=== PATIENT | female | born 1955 | race Caucasian/White ===

== ENCOUNTER 2021-04-25 03:15 | Outpatient (RCR) | payer BC, SELFPAY ==
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
[2021-04-04 08:43] LABS: Abs Immature Grans 0.03 10^3/uL (0.0-0.06); Absolute Basophil Count 0.04 10^3/uL (0.0-0.2); Absolute Eosinophil Count 0.05 10^3/uL (0.0-0.7); Absolute Lymphocyte Count 0.89 10^3/uL (1.2-3.4); Absolute Monocyte Count 0.21 10^3/uL (0.1-0.8); Absolute Neutrophil Count 2.87 10^3/uL (1.2-6.7); Eosinophils % 1.2; HCT 39.8 % (36.0-46.0); HGB 12.7 g/dL (11.2-15.7); Immature Grans % 0.7; Lymphocytes % 21.8; MCH 29.2 pg (27.0-33.0); MCHC 31.9 % (32.0-36.0); MCV 91.5 fL (80-95); MPV 10.1 fL (8.0-11.0); Monocytes % 5.1; Neutrophils % 70.2; Nucleated RBC 0 %; Platelet Count 204 10^3/uL (130-400); RBC 4.35 10^6/uL (3.93-5.22); RDW-SD 43.8 fL; WBC 4.09 10^3/uL (4.4-10.8)
[2021-04-04] MEDS: Normal Saline Flush 10 ML SYR IVP (08:43)
[2021-04-04 08:57] LABS: ALT 70 U/L (14-59); AST 28 U/L (15-37); Albumin 3.4 g/dL (3.4-5.0); Alkaline Phosphatase 97 U/L (46-116); Anion Gap 8.6 mmol/L (3-11); BUN 15 mg/dL (7-18); Bilirubin, Total 0.8 mg/dL (0.2-1.0); CO2 26.4 mmol/L (21.0-32.0); CREATININE 0.9 mg/dL (0.55-1.02); Calcium 9.3 mg/dL (8.5-10.1); Chloride 106 mmol/L (98-107); Glucose 91 mg/dL (74-106); Sodium 141 mmol/L (136-145); Total Protein 7.2 g/dL (6.4-8.2)
[2021-04-05 13:06] LABS: Cancer Ag 15-3 25 U/mL (<30)
[2021-04-11] MEDS: Normal Saline Flush 10 ML SYR IVP (08:11)
[2021-04-11 08:21] LABS: Abs Immature Grans 0.06 10^3/uL (0.0-0.06); Absolute Basophil Count 0.05 10^3/uL (0.0-0.2); Absolute Monocyte Count 0.34 10^3/uL (0.1-0.8); Basophils % 1.3; Eosinophils % 2.6; HCT 37.5 % (36.0-46.0); HGB 12.1 g/dL (11.2-15.7); Immature Grans % 1.6; Lymphocytes % 28.6; MCH 29.4 pg (27.0-33.0); MCHC 32.3 % (32.0-36.0); Monocytes % 8.8; Neutrophils % 57.1; Nucleated RBC 0 %; Platelet Count 249 10^3/uL (130-400); RBC 4.12 10^6/uL (3.93-5.22); RDW 13.4 % (11.7-14.6); RDW-SD 44.3 fL; WBC 3.85 10^3/uL (4.4-10.8)
[2021-04-11 08:33] LABS: ALT 59 U/L (14-59); AST 27 U/L (15-37); Albumin 3.4 g/dL (3.4-5.0); Alkaline Phosphatase 105 U/L (46-116); Anion Gap 9.3 mmol/L (3-11); BUN 19 mg/dL (7-18); Bilirubin, Total 0.3 mg/dL (0.2-1.0); CO2 25.7 mmol/L (21.0-32.0); CREATININE 0.8 mg/dL (0.55-1.02); Calcium 9.1 mg/dL (8.5-10.1); Chloride 106 mmol/L (98-107); Glucose 128 mg/dL (74-106); Potassium 3.6 mmol/L (3.5-5.1); Sodium 141 mmol/L (136-145); Total Protein 7.2 g/dL (6.4-8.2)
[2021-04-13 12:29] LABS: Cancer Ag 15-3 28 U/mL (<30)
[2021-04-18 07:38] LABS: Abs Immature Grans 0.01 10^3/uL (0.0-0.06); Absolute Basophil Count 0.04 10^3/uL (0.0-0.2); Absolute Eosinophil Count 0.03 10^3/uL (0.0-0.7); Absolute Lymphocyte Count 0.97 10^3/uL (1.2-3.4); Absolute Monocyte Count 0.25 10^3/uL (0.1-0.8); Basophils % 1.3; Eosinophils % 0.9; HCT 35.4 % (36.0-46.0); HGB 11.5 g/dL (11.2-15.7); Immature Grans % 0.3; Lymphocytes % 30.3; MCH 29.3 pg (27.0-33.0); MCHC 32.5 % (32.0-36.0); MCV 90.3 fL (80-95); MPV 10.4 fL (8.0-11.0); Monocytes % 7.8; Neutrophils % 59.4; Nucleated RBC 0 %; Platelet Count 255 10^3/uL (130-400); RBC 3.92 10^6/uL (3.93-5.22); RDW 13.3 % (11.7-14.6); RDW-SD 43.8 fL
[2021-04-18 07:51] LABS: ALT 60 U/L (14-59); AST 33 U/L (15-37); Albumin 3.3 g/dL (3.4-5.0); Alkaline Phosphatase 106 U/L (46-116); BUN 16 mg/dL (7-18); Bilirubin, Total 0.3 mg/dL (0.2-1.0); CREATININE 0.7 mg/dL (0.55-1.02); Calcium 9.3 mg/dL (8.5-10.1); Chloride 107 mmol/L (98-107); Glucose 118 mg/dL (74-106); Potassium 3.9 mmol/L (3.5-5.1); Sodium 141 mmol/L (136-145); Total Protein 6.9 g/dL (6.4-8.2)
[2021-04-18] MEDS: Normal Saline Flush 10 ML SYR IVP (08:03)
[2021-04-19 17:06] LABS: Cancer Ag 15-3 26 U/mL (<30)
[2021-04-25] MEDS: Normal Saline Flush 10 ML SYR IVP (07:42)
[2021-04-25 08:14] LABS: Abs Immature Grans 0.03 10^3/uL (0.0-0.06); Absolute Basophil Count 0.04 10^3/uL (0.0-0.2); Absolute Eosinophil Count 0.03 10^3/uL (0.0-0.7); Absolute Lymphocyte Count 0.99 10^3/uL (1.2-3.4); Absolute Monocyte Count 0.28 10^3/uL (0.1-0.8); Absolute Neutrophil Count 1.98 10^3/uL (1.2-6.7); Basophils % 1.2; Eosinophils % 0.9; HCT 35.3 % (36.0-46.0); HGB 11.4 g/dL (11.2-15.7); Immature Grans % 0.9; Lymphocytes % 29.6; MCH 29.5 pg (27.0-33.0); MCHC 32.3 % (32.0-36.0); MCV 91.5 fL (80-95); MPV 10.4 fL (8.0-11.0); Monocytes % 8.4; Nucleated RBC 0 %; Platelet Count 264 10^3/uL (130-400); RBC 3.86 10^6/uL (3.93-5.22); RDW 13.9 % (11.7-14.6); WBC 3.35 10^3/uL (4.4-10.8)
[2021-04-25 08:19] LABS: ALT 57 U/L (14-59); AST 28 U/L (15-37); Albumin 3.4 g/dL (3.4-5.0); Alkaline Phosphatase 107 U/L (46-116); Anion Gap 10.1 mmol/L (3-11); BUN 15 mg/dL (7-18); Bilirubin, Total 0.2 mg/dL (0.2-1.0); CO2 24.9 mmol/L (21.0-32.0); CREATININE 0.8 mg/dL (0.55-1.02); Calcium 9.3 mg/dL (8.5-10.1); Chloride 106 mmol/L (98-107); Glucose 93 mg/dL (74-106); Potassium 3.6 mmol/L (3.5-5.1); Sodium 141 mmol/L (136-145); Total Protein 6.9 g/dL (6.4-8.2)
[2021-04-26 18:38] LABS: Cancer Ag 15-3 28 U/mL (<30)
== END 2021-04-29 23:59 | disposition home or self-care (01) ==
LOC: INF 03:15
PROVIDERS: Visit Provider Internal Medicine
DX: C50.912 Malignant neoplasm of unspecified site of left female breast (principal); Z45.2 Encounter for adjustment and management of vascular access device
CPT/HCPCS: 36591; 80053; 86304; 85025; 86300

== ENCOUNTER 2021-05-02 08:20 | Outpatient (RCR) | payer BC, SELFPAY ==
[2021-05-02] MEDS: Normal Saline Flush 10 ML SYR IVP (08:38)
[2021-05-02 08:42] LABS: Abs Immature Grans 0.03 10^3/uL (0.0-0.06); Absolute Basophil Count 0.03 10^3/uL (0.0-0.2); Absolute Eosinophil Count 0.02 10^3/uL (0.0-0.7); Absolute Lymphocyte Count 0.88 10^3/uL (1.2-3.4); Absolute Monocyte Count 0.33 10^3/uL (0.1-0.8); Absolute Neutrophil Count 2.54 10^3/uL (1.2-6.7); Basophils % 0.8; Eosinophils % 0.5; HCT 34.2 % (36.0-46.0); HGB 11.3 g/dL (11.2-15.7); Immature Grans % 0.8; MCH 29.8 pg (27.0-33.0); MCV 90.2 fL (80-95); MPV 9.9 fL (8.0-11.0); Monocytes % 8.6; Neutrophils % 66.3; Nucleated RBC 0 %; Platelet Count 255 10^3/uL (130-400); RBC 3.79 10^6/uL (3.93-5.22); RDW 14.1 % (11.7-14.6); RDW-SD 45.1 fL; WBC 3.83 10^3/uL (4.4-10.8)
[2021-05-02 08:56] LABS: ALT 50 U/L (14-59); AST 26 U/L (15-37); Albumin 3.4 g/dL (3.4-5.0); Alkaline Phosphatase 97 U/L (46-116); Anion Gap 8.5 mmol/L (3-11); BUN 12 mg/dL (7-18); Bilirubin, Total 0.3 mg/dL (0.2-1.0); CO2 26.5 mmol/L (21.0-32.0); CREATININE 0.8 mg/dL (0.55-1.02); Calcium 9.3 mg/dL (8.5-10.1); Chloride 105 mmol/L (98-107); Glucose 103 mg/dL (74-106); Potassium 3.6 mmol/L (3.5-5.1); Sodium 140 mmol/L (136-145)
[2021-05-02 11:33] LABS: Magnesium 1.7 mg/dL (1.8-2.4)
[2021-05-03 17:49] LABS: Cancer Ag 15-3 29 U/mL (<30)
== END 2021-05-30 23:59 | disposition home or self-care (01) ==
LOC: INF 08:20
PROVIDERS: Visit Provider Internal Medicine
DX: C50.412 Malignant neoplasm of upper-outer quadrant of left female breast; Z17.1 Estrogen receptor negative status [ER-]; Z45.2 Encounter for adjustment and management of vascular access device
CPT/HCPCS: 36591; 80053; 86304; 83735; 85025; 86300

== ENCOUNTER 2021-05-24 01:13 | Outpatient (CLI) | payer BC, SELFPAY ==
--- NOTE | 2021-05-24 10:30 | DI.US_ITS ---
APPROVED REPORT EXAM: Comprehensive 2D, Doppler, and color-flow Echocardiogram Patient Location: Out-Patient Executive Producer Promos: Aura Zhang RDCS (AE) Indications: Malignant neoplasm left breast Other Information Study Quality: Adequate Conclusion Normal left ventricular wall thickness and chamber size. Estimated ejection fraction is 60%. There are no segmental wall motion abnormalities Normal right ventricular size and systolic function Both atria are normal in size The aortic valve is trileaflet and mildly sclerotic without stenosis or regurgitation There is no additional significant valvular disease Wall motion Left Ventricle The left ventricle is normal size. The left ventricular systolic function is normal. The left ventric ular ejection fraction is within the normal range. There is normal left ventricular wall thickness. T here is normal LV segmental wall motion. There is no ventricular septal defect visualized. LVEF is 60 %. Right Ventricle The right ventricle is normal size. The right ventricular systolic function is normal. The RVSP is 20 .7mmHg. Atria The left atrium size is normal. The right atrium size is normal. The interatrial septum is intact wit h no evidence for an atrial septal defect. Aortic Valve The Aortic valve is mildly sclerotic. Aortic valve is trileaflet. There is no aortic valvular stenosi s. No aortic regurgitation is present. Mitral Valve The mitral valve is normal in structure. No evidence of mitral valve stenosis. Trace mitral regurgita tion. Tricuspid Valve The tricuspid valve is normal in structure. There is no tricuspid valve stenosis. Trace to mild tricu spid regurgitation. Pulmonic Valve The pulmonary valve is normal in structure. There is no pulmonic valvular stenosis. There is no pulmo matt valvular regurgitation. Great Vessels The aortic root is normal in size. The ascending aorta is normal in size. Aortic arch is normal in ca liber. IVC is normal in size and collapses >50% with inspiration. Pericardium There is no pericardial effusion. 2D Dimensions IVSD d PLAX 0.76 cm F: 0.6-1.0 LV Vol A2C d MOD 116.7 mL LVPW d PLAX 0.78 cm F: 0.6 - 1.0 LV Vol A4C d MOD 92.2 mL LVID d PLAX 4.71 cm F: 3.8 - 5.2 LA vol/ BSA A2C s A-L 33.6 mL/m2 LVDs 3.20 cm F: 2.2 - 3.5 LA vol/ BSA A4C s A-L 24.5 mL/m2 Ao Root d 2.63 cm F: 2.7 - 3.3 LA Vol/ BSA Biplane s A-L 29.6 mL/m2 RA Area A4C 14.26 cm2 LA Area A4C s MOD 17.47 cm2 RA Vol/ BSA A4C s A-L 19.5 mL/m2 LA Area A2C s MOD 19.80 cm2 Ao Asc Diam d 2.95 cm F: 2.3 - 3.1 LV EF A4C MOD 59.3 % LV EF Teichholz 58.7 % LV EF A2C MOD 57.2 % LVEF (Murillo's) 57.73 % F: 54 - 74 LV EF Biplane MOD 57.7 % LV Volume 78.55 mL F: 46 - 106 SV 59.94 mL LV Volume Index 40.48 mL/m2 F: 29 - 61 SV Index 30.76 mL/m2 LV Vol Biplane MOD 103.8 mL FS 31.05 % M-Mode TAPSE 2.00 cm (M/F) >1.7 LV Diastology MV E' medial 0.081 (>0.07 m/s) E/A Ratio 1.0 LV E/e MED 7.35 (<14) MV E Vmax 0.59 (0.4-1.3 m/s) MV E' lateral 0.117 (>0.1 m/s) MV A Vmax 0.60 (0.4-1.3 m/s) LV E/e LAT 5.05 (<14) MV E/A Ratio 0.95 MV E/E' medial 7.35 MV E/E' lateral 5.06 Aortic Valve LVOT Area 3.02 cm2 AoV Area Vmax 2.29 cm2 LVOT Vmax 1.00 m/s AoV Area/ BSA (Vmax) 1.18 cm2/m2 LVOT Mean Joseph. 0.66 m/s ROZ Mean Joseph. 2.17 cm2 LVOT Peak Grad 4.0 mmHg ROZ Mean Joseph. Index 1.11 cm2/m2 LVOT Mean Grad 2.1 mmHg LVOT VTI 0.213 m LVOT Diam s 1.95 cm AoV Vmax 1.32 m/s Velocity Ratio 0.75 AoV Mean Joseph. 0.92 m/s AoV Peak Grad 6.9 mmHg LVOT SV 64.16 mL AoV Mean Grad 3.8 mmHg AoV VTI 0.262 m AoV Area VTI 2.45 cm2 AoV Area/ BSA (VTI) 1.26 cm/m2 Mitral Valve MV DT 338 (160-240 msec) MV PHT 98 msec MV Area PHT 2.25 cm2 MV VTI 0.292 m MV VTI Annulus 0.295 m MV Area VTI 2.22 (4.0-6.0 cm2) Pulmonary Valve PV Vmax 1.03 (0.5-1.5 m/s) RVOT Peak Gr. 1.31 mmHg PV Peak Grad 4.2 mmHg RVOT Mean Gr. 0.60 mmHg PV Mean Grad 2.1 mmHg RVOT VTI 0.123 m PV VTI 0.213 m RVOT Vmax 0.57 m/s Tricuspid Valve TR Peak Grad 17.6 mmHg TR Vmax 2.10 m/s RA Pressure 3.00 mmHg RVSP (TR) 20.7 mmHg
== END 2021-05-24 01:33 ==
PROVIDERS: PCP Internal Medicine; Visit Provider Nurse Practitioner Adult Health
DX: C50.412 Malignant neoplasm of upper-outer quadrant of left female breast (principal); Z17.1 Estrogen receptor negative status [ER-]; I35.8 Other nonrheumatic aortic valve disorders
CPT/HCPCS: 93306

== ENCOUNTER 2021-05-30 02:09 | Outpatient (RCR) | payer BC, SELFPAY ==
[2021-05-09] MEDS: Normal Saline Flush 10 ML SYR IVP (08:09)
[2021-05-09 08:21] LABS: Abs Immature Grans 0.03 10^3/uL (0.0-0.06); Absolute Basophil Count 0.04 10^3/uL (0.0-0.2); Absolute Eosinophil Count 0.03 10^3/uL (0.0-0.7); Absolute Lymphocyte Count 1.05 10^3/uL (1.2-3.4); Absolute Monocyte Count 0.38 10^3/uL (0.1-0.8); Absolute Neutrophil Count 2.51 10^3/uL (1.2-6.7); Eosinophils % 0.7; HCT 33.7 % (36.0-46.0); HGB 11.1 g/dL (11.2-15.7); Immature Grans % 0.7; MCH 29.4 pg (27.0-33.0); MCHC 32.9 % (32.0-36.0); MCV 89.4 fL (80-95); MPV 10.1 fL (8.0-11.0); Monocytes % 9.4; Neutrophils % 62.2; Nucleated RBC 0 %; Platelet Count 248 10^3/uL (130-400); RBC 3.77 10^6/uL (3.93-5.22); RDW 14.6 % (11.7-14.6); RDW-SD 46.5 fL; WBC 4.04 10^3/uL (4.4-10.8)
[2021-05-09 08:35] LABS: ALT 47 U/L (14-59); AST 28 U/L (15-37); Albumin 3.3 g/dL (3.4-5.0); Alkaline Phosphatase 84 U/L (46-116); Anion Gap 6.5 mmol/L (3-11); BUN 12 mg/dL (7-18); Bilirubin, Total 0.4 mg/dL (0.2-1.0); CO2 28.5 mmol/L (21.0-32.0); CREATININE 0.8 mg/dL (0.55-1.02); Calcium 9.1 mg/dL (8.5-10.1); Chloride 107 mmol/L (98-107); Glucose 142 mg/dL (74-106); Potassium 3.3 mmol/L (3.5-5.1); Sodium 142 mmol/L (136-145); Total Protein 6.6 g/dL (6.4-8.2)
[2021-05-09 09:52] LABS: Magnesium 1.7 mg/dL (1.8-2.4)
[2021-05-11 13:01] LABS: Cancer Ag 15-3 30 U/mL (<30)
[2021-05-16] MEDS: Normal Saline Flush 10 ML SYR IVP (08:10)
[2021-05-16 08:41] LABS: Abs Immature Grans 0.04 10^3/uL (0.0-0.06); Absolute Basophil Count 0.04 10^3/uL (0.0-0.2); Absolute Eosinophil Count 0.03 10^3/uL (0.0-0.7); Absolute Lymphocyte Count 0.76 10^3/uL (1.2-3.4); Absolute Monocyte Count 0.37 10^3/uL (0.1-0.8); Absolute Neutrophil Count 2.83 10^3/uL (1.2-6.7); Eosinophils % 0.7; HCT 34.5 % (36.0-46.0); HGB 11.1 g/dL (11.2-15.7); Lymphocytes % 18.7; MCH 29.6 pg (27.0-33.0); MCHC 32.2 % (32.0-36.0); MPV 10.5 fL (8.0-11.0); Monocytes % 9.1; Neutrophils % 69.5; Nucleated RBC 0 %; Platelet Count 263 10^3/uL (130-400); RBC 3.75 10^6/uL (3.93-5.22); RDW 15.1 % (11.7-14.6); RDW-SD 49.4 fL; WBC 4.07 10^3/uL (4.4-10.8)
[2021-05-16 08:51] LABS: ALT 53 U/L (14-59); AST 25 U/L (15-37); Albumin 3.4 g/dL (3.4-5.0); Alkaline Phosphatase 101 U/L (46-116); Anion Gap 8.7 mmol/L (3-11); BUN 14 mg/dL (7-18); Bilirubin, Total 0.3 mg/dL (0.2-1.0); CO2 24.3 mmol/L (21.0-32.0); CREATININE 0.8 mg/dL (0.55-1.02); Calcium 9.3 mg/dL (8.5-10.1); Chloride 107 mmol/L (98-107); Glucose 131 mg/dL (74-106); Potassium 3.6 mmol/L (3.5-5.1); Sodium 140 mmol/L (136-145); Total Protein 6.8 g/dL (6.4-8.2)
[2021-05-23] MEDS: Normal Saline Flush 10 ML SYR IVP (07:48)
[2021-05-23 08:01] LABS: Abs Immature Grans 0.04 10^3/uL (0.0-0.06); Absolute Basophil Count 0.04 10^3/uL (0.0-0.2); Absolute Eosinophil Count 0.03 10^3/uL (0.0-0.7); Absolute Lymphocyte Count 0.81 10^3/uL (1.2-3.4); Absolute Neutrophil Count 2.31 10^3/uL (1.2-6.7); Basophils % 1.1; Eosinophils % 0.8; HCT 34.7 % (36.0-46.0); HGB 11.3 g/dL (11.2-15.7); Immature Grans % 1.1; Lymphocytes % 22.3; MCHC 32.6 % (32.0-36.0); MPV 10.4 fL (8.0-11.0); Neutrophils % 63.7; Nucleated RBC 0 %; Platelet Count 266 10^3/uL (130-400); RBC 3.77 10^6/uL (3.93-5.22); RDW 15.2 % (11.7-14.6); RDW-SD 50.4 fL; WBC 3.63 10^3/uL (4.4-10.8)
[2021-05-23 08:14] LABS: Magnesium 1.7 mg/dL (1.8-2.4)
[2021-05-23 08:18] LABS: ALT 56 U/L (14-59); AST 36 U/L (15-37); Albumin 3.6 g/dL (3.4-5.0); Alkaline Phosphatase 115 U/L (46-116); Anion Gap 10.6 mmol/L (3-11); BUN 14 mg/dL (7-18); Bilirubin, Total 0.3 mg/dL (0.2-1.0); CO2 26.4 mmol/L (21.0-32.0); CREATININE 0.8 mg/dL (0.55-1.02); Calcium 9.5 mg/dL (8.5-10.1); Chloride 104 mmol/L (98-107); Glucose 104 mg/dL (74-106); Potassium 4.1 mmol/L (3.5-5.1); Sodium 141 mmol/L (136-145); Total Protein 7.1 g/dL (6.4-8.2)
[2021-05-25 12:52] LABS: Cancer Ag 15-3 33 U/mL (<30)
[2021-05-30] MEDS: Normal Saline Flush 10 ML SYR IVP (09:18)
[2021-05-30 09:39] LABS: Abs Immature Grans 0.05 10^3/uL (0.0-0.06); Absolute Basophil Count 0.03 10^3/uL (0.0-0.2); Absolute Eosinophil Count 0.03 10^3/uL (0.0-0.7); Absolute Lymphocyte Count 0.81 10^3/uL (1.2-3.4); Absolute Monocyte Count 0.39 10^3/uL (0.1-0.8); Absolute Neutrophil Count 2.42 10^3/uL (1.2-6.7); Basophils % 0.8; Eosinophils % 0.8; HGB 11.2 g/dL (11.2-15.7); Immature Grans % 1.3; Lymphocytes % 21.7; MCH 30.4 pg (27.0-33.0); MCHC 32.9 % (32.0-36.0); MCV 92.1 fL (80-95); MPV 10.5 fL (8.0-11.0); Monocytes % 10.5; Neutrophils % 64.9; Nucleated RBC 0 %; Platelet Count 275 10^3/uL (130-400); RBC 3.69 10^6/uL (3.93-5.22); RDW 15.2 % (11.7-14.6); RDW-SD 50.8 fL; WBC 3.73 10^3/uL (4.4-10.8)
[2021-05-30 09:48] LABS: Magnesium 1.7 mg/dL (1.8-2.4)
[2021-05-30 09:55] LABS: ALT 52 U/L (14-59); AST 30 U/L (15-37); Albumin 3.5 g/dL (3.4-5.0); Alkaline Phosphatase 103 U/L (46-116); Anion Gap 6.8 mmol/L (3-11); BUN 19 mg/dL (7-18); Bilirubin, Total 0.4 mg/dL (0.2-1.0); CO2 27.2 mmol/L (21.0-32.0); CREATININE 0.8 mg/dL (0.55-1.02); Calcium 9.2 mg/dL (8.5-10.1); Chloride 105 mmol/L (98-107); Glucose 105 mg/dL (74-106); Potassium 3.9 mmol/L (3.5-5.1); Sodium 139 mmol/L (136-145)
[2021-06-01 10:21] LABS: Cancer Ag 15-3 31 U/mL (<30)
== END 2021-05-30 23:59 | disposition home or self-care (01) ==
LOC: INF 02:09
PROVIDERS: Visit Provider Internal Medicine
DX: C50.412 Malignant neoplasm of upper-outer quadrant of left female breast (principal); Z45.2 Encounter for adjustment and management of vascular access device; Z17.1 Estrogen receptor negative status [ER-]
CPT/HCPCS: 36415; 36591; 80053; 86304; 83735; 85025; 86300

== ENCOUNTER 2021-06-20 09:30 | Outpatient (RCR) | payer BC, SELFPAY ==
[2021-06-06] MEDS: Normal Saline Flush 10 ML SYR IVP (08:27)
[2021-06-06 08:43] LABS: Abs Immature Grans 0.06 10^3/uL (0.0-0.06); Absolute Basophil Count 0.04 10^3/uL (0.0-0.2); Absolute Eosinophil Count 0.05 10^3/uL (0.0-0.7); Absolute Lymphocyte Count 0.73 10^3/uL (1.2-3.4); Absolute Monocyte Count 0.34 10^3/uL (0.1-0.8); Absolute Neutrophil Count 2.66 10^3/uL (1.2-6.7); Eosinophils % 1.3; HCT 34.2 % (36.0-46.0); HGB 11.2 g/dL (11.2-15.7); Immature Grans % 1.5; Lymphocytes % 18.8; MCH 30.4 pg (27.0-33.0); MCHC 32.7 % (32.0-36.0); MCV 92.9 fL (80-95); MPV 10.2 fL (8.0-11.0); Monocytes % 8.8; Neutrophils % 68.6; Nucleated RBC 0 %; Platelet Count 268 10^3/uL (130-400); RBC 3.68 10^6/uL (3.93-5.22); RDW 15.6 % (11.7-14.6); RDW-SD 52.2 fL; WBC 3.88 10^3/uL (4.4-10.8)
[2021-06-06 08:55] LABS: Magnesium 1.6 mg/dL (1.8-2.4)
[2021-06-06 08:59] LABS: ALT 41 U/L (14-59); AST 23 U/L (15-37); Albumin 3.4 g/dL (3.4-5.0); Alkaline Phosphatase 90 U/L (46-116); Anion Gap 7.6 mmol/L (3-11); BUN 12 mg/dL (7-18); Bilirubin, Total 0.4 mg/dL (0.2-1.0); CO2 27.4 mmol/L (21.0-32.0); CREATININE 0.8 mg/dL (0.55-1.02); Calcium 9.4 mg/dL (8.5-10.1); Chloride 107 mmol/L (98-107); Glucose 115 mg/dL (74-106); Potassium 3.6 mmol/L (3.5-5.1); Sodium 142 mmol/L (136-145); Total Protein 6.8 g/dL (6.4-8.2)
[2021-06-07 12:08] LABS: Cancer Ag 15-3 32 U/mL (<30)
[2021-06-13] MEDS: Normal Saline Flush 10 ML SYR IVP (10:43)
[2021-06-13 10:56] LABS: Abs Immature Grans 0.03 10^3/uL (0.0-0.06); Absolute Basophil Count 0.04 10^3/uL (0.0-0.2); Absolute Eosinophil Count 0.05 10^3/uL (0.0-0.7); Absolute Lymphocyte Count 0.78 10^3/uL (1.2-3.4); Absolute Monocyte Count 0.35 10^3/uL (0.1-0.8); Absolute Neutrophil Count 2.35 10^3/uL (1.2-6.7); Basophils % 1.1; Eosinophils % 1.4; HCT 32.7 % (36.0-46.0); HGB 10.9 g/dL (11.2-15.7); Immature Grans % 0.8; Lymphocytes % 21.7; MCH 30.6 pg (27.0-33.0); MCHC 33.3 % (32.0-36.0); MCV 91.9 fL (80-95); MPV 10.3 fL (8.0-11.0); Monocytes % 9.7; Neutrophils % 65.3; Nucleated RBC 0 %; Platelet Count 275 10^3/uL (130-400); RBC 3.56 10^6/uL (3.93-5.22); RDW 15.3 % (11.7-14.6); RDW-SD 51.6 fL
[2021-06-13 11:04] LABS: Magnesium 1.6 mg/dL (1.8-2.4)
[2021-06-13 11:08] LABS: ALT 33 U/L (14-59); AST 22 U/L (15-37); Albumin 3.5 g/dL (3.4-5.0); Alkaline Phosphatase 93 U/L (46-116); Anion Gap 6.9 mmol/L (3-11); BUN 17 mg/dL (7-18); Bilirubin, Total 0.5 mg/dL (0.2-1.0); CO2 29.1 mmol/L (21.0-32.0); CREATININE 0.8 mg/dL (0.55-1.02); Calcium 9.6 mg/dL (8.5-10.1); Chloride 105 mmol/L (98-107); Glucose 123 mg/dL (74-106); Potassium 3.1 mmol/L (3.5-5.1); Sodium 141 mmol/L (136-145); Total Protein 6.9 g/dL (6.4-8.2)
[2021-06-20] MEDS: Normal Saline Flush 10 ML SYR IVP (09:53)
[2021-06-20 09:56] LABS: Abs Immature Grans 0.05 10^3/uL (0.0-0.06); Absolute Basophil Count 0.03 10^3/uL (0.0-0.2); Absolute Eosinophil Count 0.11 10^3/uL (0.0-0.7); Absolute Lymphocyte Count 0.78 10^3/uL (1.2-3.4); Absolute Monocyte Count 0.39 10^3/uL (0.1-0.8); Absolute Neutrophil Count 2.54 10^3/uL (1.2-6.7); Basophils % 0.8; Eosinophils % 2.8; HCT 34.2 % (36.0-46.0); HGB 10.9 g/dL (11.2-15.7); Immature Grans % 1.3; MCH 30.1 pg (27.0-33.0); MCHC 31.9 % (32.0-36.0); MCV 94.5 fL (80-95); MPV 10.2 fL (8.0-11.0); Neutrophils % 65.1; Nucleated RBC 0 %; Platelet Count 286 10^3/uL (130-400); RBC 3.62 10^6/uL (3.93-5.22); RDW 15.9 % (11.7-14.6); RDW-SD 54.1 fL
[2021-06-20 10:09] LABS: ALT 41 U/L (14-59); AST 23 U/L (15-37); Albumin 3.4 g/dL (3.4-5.0); Alkaline Phosphatase 97 U/L (46-116); Anion Gap 12.2 mmol/L (3-11); BUN 18 mg/dL (7-18); Bilirubin, Total 0.4 mg/dL (0.2-1.0); CO2 24.8 mmol/L (21.0-32.0); CREATININE 0.8 mg/dL (0.55-1.02); Calcium 9.2 mg/dL (8.5-10.1); Chloride 106 mmol/L (98-107); Glucose 113 mg/dL (74-106); Magnesium 1.6 mg/dL (1.8-2.4); Potassium 3.4 mmol/L (3.5-5.1); Sodium 143 mmol/L (136-145)
[2021-06-21 19:36] LABS: Cancer Ag 15-3 33 U/mL (<30)
== END 2021-06-29 23:59 | disposition home or self-care (01) ==
LOC: INF 09:30
PROVIDERS: PCP Internal Medicine; Visit Provider Internal Medicine
DX: C50.412 Malignant neoplasm of upper-outer quadrant of left female breast (principal); Z45.2 Encounter for adjustment and management of vascular access device; Z17.1 Estrogen receptor negative status [ER-]
CPT/HCPCS: 36591; 80053; 86304; 83735; 85025; 86300

== ENCOUNTER 2021-07-11 01:34 | Outpatient (RCR) | payer BC, SELFPAY ==
[2021-07-11] MEDS: Normal Saline Flush 10 ML SYR IVP (09:28)
[2021-07-11] MEDS: Heparin 500 UNITS/5 ML SYRINGE IV (09:28)
[2021-07-11 09:48] LABS: Abs Immature Grans 0.01 10^3/uL (0.0-0.06); Absolute Basophil Count 0.03 10^3/uL (0.0-0.2); Absolute Lymphocyte Count 0.76 10^3/uL (1.2-3.4); Absolute Monocyte Count 0.51 10^3/uL (0.1-0.8); Absolute Neutrophil Count 3.26 10^3/uL (1.2-6.7); Basophils % 0.6; Eosinophils % 2.1; HCT 33.6 % (36.0-46.0); HGB 10.7 g/dL (11.2-15.7); Immature Grans % 0.2; Lymphocytes % 16.3; MCH 30.5 pg (27.0-33.0); MCHC 31.8 % (32.0-36.0); MCV 95.7 fL (80-95); MPV 10.1 fL (8.0-11.0); Monocytes % 10.9; Neutrophils % 69.9; Nucleated RBC 0 %; Platelet Count 242 10^3/uL (130-400); RBC 3.51 10^6/uL (3.93-5.22); RDW 14.3 % (11.7-14.6); RDW-SD 50.1 fL; WBC 4.67 10^3/uL (4.4-10.8)
[2021-07-11 10:03] LABS: ALT 22 U/L (14-59); AST 22 U/L (15-37); Albumin 3.3 g/dL (3.4-5.0); Alkaline Phosphatase 108 U/L (46-116); Anion Gap 5.7 mmol/L (3-11); BUN 18 mg/dL (7-18); Bilirubin, Total 0.4 mg/dL (0.2-1.0); CO2 28.3 mmol/L (21.0-32.0); CREATININE 0.8 mg/dL (0.55-1.02); Calcium 9.2 mg/dL (8.5-10.1); Chloride 108 mmol/L (98-107); Glucose 98 mg/dL (74-106); Potassium 4.1 mmol/L (3.5-5.1); Sodium 142 mmol/L (136-145); Total Protein 6.8 g/dL (6.4-8.2)
== END 2021-07-30 23:59 | disposition home or self-care (01) ==
LOC: INF 01:34
PROVIDERS: PCP Internal Medicine; Visit Provider Internal Medicine
DX: C50.912 Malignant neoplasm of unspecified site of left female breast (principal); Z45.2 Encounter for adjustment and management of vascular access device
CPT/HCPCS: 36591; 80053; 85025

== ENCOUNTER 2021-08-18 01:46 | Outpatient (CLI) | payer BC, SELFPAY ==
--- NOTE | 2021-08-18 15:11 | DI.US_ITS ---
APPROVED REPORT EXAM: Comprehensive 2D, Doppler, and color-flow Echocardiogram Patient Location: Out-Patient Project Coach: Aura Zhang RDCS (AE) Indications: HER2 Positive Carcinoma left breast Other Information Study Quality: Adequate Conclusion Normal left ventricular wall thickness and chamber size. Estimated ejection fraction is 60%. There are no segmental wall motion abnormalities Normal right ventricular size and systolic function Both atria are normal in size Trileaflet sclerotic aortic valve without stenosis or regurgitation Normal estimated right ventricular systolic pressure, 22 mmHg Wall motion Left Ventricle The left ventricle is normal size. The left ventricular systolic function is normal. The left ventric ular ejection fraction is within the normal range. There is normal left ventricular wall thickness. T here is normal LV segmental wall motion. There is no ventricular septal defect visualized. LVEF is 60 %. Right Ventricle The right ventricle is normal size. The right ventricular systolic function is normal. The RVSP is 22 .6 mmHg. Atria The left atrium size is normal. The right atrium size is normal. The interatrial septum is intact wit h no evidence for an atrial septal defect. Aortic Valve The Aortic valve is sclerotic. Aortic valve is trileaflet. There is no aortic valvular stenosis. No a ortic regurgitation is present. Mitral Valve The mitral valve is normal in structure. No evidence of mitral valve stenosis. Trace mitral regurgita tion. Tricuspid Valve The tricuspid valve is normal in structure. There is no tricuspid valve stenosis. Trace tricuspid reg urgitation. Pulmonic Valve The pulmonary valve is normal in structure. There is no pulmonic valvular stenosis. Trace pulmonic re gurgitation. Great Vessels The aortic root is normal in size. The ascending aorta is normal in size. Aortic arch is normal in ca liber. IVC is normal in size and collapses >50% with inspiration. Pericardium There is no pericardial effusion. 2D Dimensions IVSD d PLAX 0.75 cm F: 0.6-1.0 LV Vol A2C d MOD 84.0 mL LVPW d PLAX 0.82 cm F: 0.6 - 1.0 LV Vol A4C d MOD 94.7 mL LVID d PLAX 4.77 cm F: 3.8 - 5.2 LA vol/ BSA A2C s A-L 25.1 mL/m2 LVDs 3.15 cm F: 2.2 - 3.5 LA vol/ BSA A4C s A-L 22.8 mL/m2 Ao Root d 2.65 cm F: 2.7 - 3.3 LA Vol/ BSA Biplane s A-L 24.3 mL/m2 RA Area A4C 14.41 cm2 LA Area A4C s MOD 16.78 cm2 RA Vol/ BSA A4C s A-L 21.2 mL/m2 LA Area A2C s MOD 17.33 cm2 Ao Asc Diam d 3.01 cm F: 2.3 - 3.1 LV EF A4C MOD 59.4 % LV EF Teichholz 62.2 % LV EF A2C MOD 60.2 % LVEF (Murillo's) 59.81 % F: 54 - 74 LV EF Biplane MOD 59.8 % LV Volume 71.00 mL F: 46 - 106 SV 55.86 mL LV Volume Index 36.97 mL/m2 F: 29 - 61 SV Index 29.07 mL/m2 LV Vol Biplane MOD 93.4 mL FS 33.55 % M-Mode TAPSE 2.16 cm (M/F) >1.7 LV Diastology MV E' medial 0.074 (>0.07 m/s) E/A Ratio 1.1 LV E/e MED 8.00 (<14) MV E Vmax 0.60 (0.4-1.3 m/s) MV E' lateral 0.078 (>0.1 m/s) MV A Vmax 0.55 (0.4-1.3 m/s) LV E/e LAT 7.60 (<14) MV E/A Ratio 1.05 MV E/E' medial 8.02 MV E/E' lateral 7.62 Aortic Valve LVOT Area 3.07 cm2 AoV Area Vmax 2.63 cm2 LVOT Vmax 1.06 m/s AoV Area/ BSA (Vmax) 1.37 cm2/m2 LVOT Mean Joseph. 0.65 m/s ROZ Mean Joseph. 2.37 cm2 LVOT Peak Grad 4.5 mmHg ROZ Mean Joseph. Index 1.23 cm2/m2 LVOT Mean Grad 2.0 mmHg LVOT VTI 0.229 m LVOT Diam s 1.95 cm AoV Vmax 1.24 m/s Velocity Ratio 0.85 AoV Mean Joseph. 0.84 m/s AoV Peak Grad 6.1 mmHg LVOT SV 70.23 mL AoV Mean Grad 3.1 mmHg AoV VTI 0.258 m AoV Area VTI 2.72 cm2 AoV Area/ BSA (VTI) 1.41 cm/m2 Mitral Valve MV DT 162 (160-240 msec) MV PHT 47 msec MV Area PHT 4.69 cm2 MV VTI 0.271 m MV Area VTI 2.59 (4.0-6.0 cm2) Pulmonary Valve PV Vmax 1.03 (0.5-1.5 m/s) RVOT Peak Gr. 1.74 mmHg PV Peak Grad 4.3 mmHg RVOT Mean Gr. 1.05 mmHg PV Mean Grad 2.1 mmHg RVOT VTI 0.166 m PV VTI 0.231 m RVOT Vmax 0.66 m/s Tricuspid Valve TR Peak Grad 19.5 mmHg TR Vmax 2.21 m/s RA Pressure 3.00 mmHg RVSP (TR) 22.6 mmHg
== END 2021-08-18 02:06 ==
PROVIDERS: PCP Internal Medicine; Visit Provider Nurse Practitioner Adult Health
DX: C50.912 Malignant neoplasm of unspecified site of left female breast (principal); Z79.899 Other long term (current) drug therapy
CPT/HCPCS: 93306

== ENCOUNTER 2021-08-22 01:32 | Outpatient (RCR) | payer BC, SELFPAY ==
[2021-08-01 09:11] LABS: Absolute Basophil Count 0.05 10^3/uL (0.0-0.2); Absolute Monocyte Count 0.39 10^3/uL (0.1-0.8); Absolute Neutrophil Count 3.08 10^3/uL (1.2-6.7); Basophils % 1.1; Eosinophils % 2.2; HCT 36.9 % (36.0-46.0); HGB 11.8 g/dL (11.2-15.7); Lymphocytes % 19.9; MCH 30.4 pg (27.0-33.0); MCV 95.1 fL (80-95); MPV 9.7 fL (8.0-11.0); Monocytes % 8.6; Neutrophils % 68.2; Nucleated RBC 0 %; Platelet Count 221 10^3/uL (130-400); RBC 3.88 10^6/uL (3.93-5.22); RDW 12.9 % (11.7-14.6); RDW-SD 44.6 fL; WBC 4.52 10^3/uL (4.4-10.8)
[2021-08-01 09:24] LABS: ALT 37 U/L (14-59); AST 29 U/L (15-37); Albumin 3.5 g/dL (3.4-5.0); Alkaline Phosphatase 126 U/L (46-116); Anion Gap 6.8 mmol/L (3-11); BUN 16 mg/dL (7-18); Bilirubin, Total 0.5 mg/dL (0.2-1.0); CO2 29.2 mmol/L (21.0-32.0); CREATININE 0.8 mg/dL (0.55-1.02); Calcium 9.4 mg/dL (8.5-10.1); Chloride 107 mmol/L (98-107); Glucose 122 mg/dL (74-106); Potassium 3.7 mmol/L (3.5-5.1); Sodium 143 mmol/L (136-145); Total Protein 7.1 g/dL (6.4-8.2)
[2021-08-01] MEDS: Normal Saline Flush 10 ML SYR IVP (09:39)
[2021-08-22] MEDS: Normal Saline Flush 10 ML SYR IVP (07:30)
[2021-08-22 07:46] LABS: Abs Immature Grans 0.01 10^3/uL (0.0-0.06); Absolute Basophil Count 0.03 10^3/uL (0.0-0.2); Absolute Eosinophil Count 0.13 10^3/uL (0.0-0.7); Absolute Lymphocyte Count 0.84 10^3/uL (1.2-3.4); Absolute Neutrophil Count 2.79 10^3/uL (1.2-6.7); Basophils % 0.7; Eosinophils % 3.1; HCT 37.2 % (36.0-46.0); HGB 11.8 g/dL (11.2-15.7); Immature Grans % 0.2; MCH 29.4 pg (27.0-33.0); MCHC 31.7 % (32.0-36.0); MCV 92.8 fL (80-95); MPV 9.6 fL (8.0-11.0); Monocytes % 9.5; Neutrophils % 66.5; Nucleated RBC 0 %; Platelet Count 206 10^3/uL (130-400); RBC 4.01 10^6/uL (3.93-5.22); RDW 12.3 % (11.7-14.6); RDW-SD 42.4 fL
[2021-08-22 07:59] LABS: ALT 36 U/L (14-59); AST 28 U/L (15-37); Albumin 3.6 g/dL (3.4-5.0); Alkaline Phosphatase 129 U/L (46-116); Anion Gap 6.8 mmol/L (3-11); BUN 21 mg/dL (7-18); Bilirubin, Total 0.4 mg/dL (0.2-1.0); CO2 28.2 mmol/L (21.0-32.0); CREATININE 0.7 mg/dL (0.55-1.02); Calcium 9.3 mg/dL (8.5-10.1); Chloride 107 mmol/L (98-107); Glucose 99 mg/dL (74-106); Sodium 142 mmol/L (136-145); Total Protein 7.1 g/dL (6.4-8.2)
== END 2021-08-29 23:59 | disposition home or self-care (01) ==
LOC: INF 01:32
PROVIDERS: PCP Internal Medicine; Visit Provider Internal Medicine
DX: C50.912 Malignant neoplasm of unspecified site of left female breast (principal); Z45.2 Encounter for adjustment and management of vascular access device
CPT/HCPCS: 36591; 80053; 85025

== ENCOUNTER 2021-09-12 02:23 | Outpatient (RCR) | payer BC, SELFPAY ==
[2021-09-12] MEDS: Normal Saline Flush 10 ML SYR IVP (08:32)
[2021-09-12 08:34] LABS: Abs Immature Grans 0.01 10^3/uL (0.0-0.06); Absolute Basophil Count 0.04 10^3/uL (0.0-0.2); Absolute Eosinophil Count 0.23 10^3/uL (0.0-0.7); Absolute Lymphocyte Count 0.79 10^3/uL (1.2-3.4); Absolute Monocyte Count 0.39 10^3/uL (0.1-0.8); Absolute Neutrophil Count 2.84 10^3/uL (1.2-6.7); Basophils % 0.9; Eosinophils % 5.3; HCT 36.8 % (36.0-46.0); HGB 11.8 g/dL (11.2-15.7); Immature Grans % 0.2; Lymphocytes % 18.4; MCH 29.3 pg (27.0-33.0); MCHC 32.1 % (32.0-36.0); MCV 91.3 fL (80-95); MPV 9.6 fL (8.0-11.0); Monocytes % 9.1; Neutrophils % 66.1; Nucleated RBC 0 %; Platelet Count 196 10^3/uL (130-400); RBC 4.03 10^6/uL (3.93-5.22); RDW 12.2 % (11.7-14.6); RDW-SD 41.2 fL
[2021-09-12 08:47] LABS: ALT 34 U/L (14-59); AST 29 U/L (15-37); Albumin 3.4 g/dL (3.4-5.0); Alkaline Phosphatase 123 U/L (46-116); Anion Gap 7.8 mmol/L (3-11); BUN 24 mg/dL (7-18); Bilirubin, Total 0.3 mg/dL (0.2-1.0); CO2 28.2 mmol/L (21.0-32.0); CREATININE 0.7 mg/dL (0.55-1.02); Calcium 9.2 mg/dL (8.5-10.1); Chloride 106 mmol/L (98-107); Glucose 107 mg/dL (74-106); Potassium 3.9 mmol/L (3.5-5.1); Sodium 142 mmol/L (136-145); Total Protein 6.8 g/dL (6.4-8.2)
== END 2021-09-29 23:59 | disposition home or self-care (01) ==
LOC: INF 02:23
PROVIDERS: PCP Internal Medicine; Visit Provider Internal Medicine
DX: C50.912 Malignant neoplasm of unspecified site of left female breast (principal); Z45.2 Encounter for adjustment and management of vascular access device
CPT/HCPCS: 36591; 80053; 85025

== ENCOUNTER 2021-10-24 12:30 | Outpatient (RCR) | payer BC, SELFPAY ==
[2021-10-03] MEDS: Normal Saline Flush 10 ML SYR IVP (11:55)
[2021-10-03 12:35] LABS: Abs Immature Grans 0.02 10^3/uL (0.0-0.06); Absolute Basophil Count 0.05 10^3/uL (0.0-0.2); Absolute Eosinophil Count 0.17 10^3/uL (0.0-0.7); Absolute Monocyte Count 0.44 10^3/uL (0.1-0.8); Absolute Neutrophil Count 2.95 10^3/uL (1.2-6.7); Basophils % 1.1; Eosinophils % 3.8; HGB 11.8 g/dL (11.2-15.7); Immature Grans % 0.4; Lymphocytes % 19.9; MCH 28.6 pg (27.0-33.0); MCHC 31.9 % (32.0-36.0); MCV 89.8 fL (80-95); MPV 9.9 fL (8.0-11.0); Monocytes % 9.7; Neutrophils % 65.1; Nucleated RBC 0 %; Platelet Count 230 10^3/uL (130-400); RBC 4.12 10^6/uL (3.93-5.22); RDW 12.8 % (11.7-14.6); RDW-SD 41.7 fL; WBC 4.53 10^3/uL (4.4-10.8)
[2021-10-03 12:48] LABS: ALT 50 U/L (14-59); AST 38 U/L (15-37); Albumin 3.6 g/dL (3.4-5.0); Alkaline Phosphatase 136 U/L (46-116); Anion Gap 6.6 mmol/L (3-11); BUN 22 mg/dL (7-18); Bilirubin, Total 0.4 mg/dL (0.2-1.0); CO2 28.4 mmol/L (21.0-32.0); CREATININE 0.8 mg/dL (0.55-1.02); Chloride 106 mmol/L (98-107); Glucose 92 mg/dL (74-106); Sodium 141 mmol/L (136-145); Total Protein 7.1 g/dL (6.4-8.2)
[2021-10-24 13:18] LABS: Abs Immature Grans 0.01 10^3/uL (0.0-0.06); Absolute Basophil Count 0.06 10^3/uL (0.0-0.2); Absolute Eosinophil Count 0.11 10^3/uL (0.0-0.7); Absolute Lymphocyte Count 1.08 10^3/uL (1.2-3.4); Absolute Monocyte Count 0.44 10^3/uL (0.1-0.8); Basophils % 1.2; Eosinophils % 2.2; HCT 37.4 % (36.0-46.0); Immature Grans % 0.2; MCH 28.4 pg (27.0-33.0); MCHC 32.1 % (32.0-36.0); MCV 88.4 fL (80-95); Neutrophils % 65.4; Nucleated RBC 0 %; Platelet Count 226 10^3/uL (130-400); RBC 4.23 10^6/uL (3.93-5.22); RDW 13.3 % (11.7-14.6); RDW-SD 43.3 fL
[2021-10-24 13:32] LABS: ALT 32 U/L (14-59); AST 23 U/L (15-37); Albumin 3.7 g/dL (3.4-5.0); Alkaline Phosphatase 106 U/L (46-116); Anion Gap 8.2 mmol/L (3-11); BUN 24 mg/dL (7-18); Bilirubin, Total 0.3 mg/dL (0.2-1.0); CO2 26.8 mmol/L (21.0-32.0); CREATININE 0.9 mg/dL (0.55-1.02); Calcium 9.7 mg/dL (8.5-10.1); Chloride 104 mmol/L (98-107); Glucose 121 mg/dL (74-106); Magnesium 1.7 mg/dL (1.8-2.4); Potassium 3.9 mmol/L (3.5-5.1); Sodium 139 mmol/L (136-145); Total Protein 7.3 g/dL (6.4-8.2)
[2021-10-24] MEDS: Normal Saline Flush 10 ML SYR IVP (15:08)
[2021-10-25 17:33] LABS: Cancer Ag 15-3 19 U/mL (<30)
== END 2021-10-30 23:59 | disposition home or self-care (01) ==
LOC: INF 12:30
PROVIDERS: PCP Internal Medicine; Visit Provider Internal Medicine
DX: C50.412 Malignant neoplasm of upper-outer quadrant of left female breast; Z17.1 Estrogen receptor negative status [ER-]; Z45.2 Encounter for adjustment and management of vascular access device
CPT/HCPCS: 36591; 80053; 86304; 83735; 85025; 86300

== ENCOUNTER 2021-11-06 02:00 | Outpatient (CLI) | payer BC, SELFPAY ==
--- NOTE | 2021-11-06 14:56 | DI.US_ITS ---
APPROVED REPORT EXAM: Comprehensive 2D, Doppler, and color-flow Echocardiogram Patient Location: Out-Patient Liquefier: Aura Zhang RDCS (AE) Indications: Lt Breast CA Other Information Study Quality: Adequate Conclusion Normal left ventricular wall thickness and chamber size. Estimated ejection fraction is 60%. Wall mot ion is normal Normal right ventricular size and systolic function Both atria are normal in size Mildly sclerotic trileaflet aortic valve without stenosis or regurgitation Normal mitral valve with trace regurgitation Normal tricuspid valve with mild regurgitation. Estimated right ventricular systolic pressure is 22 m mHg Wall motion Left Ventricle The left ventricle is normal size. The left ventricular systolic function is normal. The left ventric ular ejection fraction is within the normal range. There is normal left ventricular wall thickness. T here is normal LV segmental wall motion. There is no ventricular septal defect visualized. LVEF is 60 %. Right Ventricle The right ventricle is normal size. The right ventricular systolic function is normal. The RVSP is 21 .9mmHg. Atria The left atrium size is normal. The right atrium size is normal. The interatrial septum is intact wit h no evidence for an atrial septal defect. Aortic Valve The aortic valve is mildly sclerotic Aortic valve is trileaflet. There is no aortic valvular stenosis . No aortic regurgitation is present. Mitral Valve The mitral valve is normal in structure. No evidence of mitral valve stenosis. Trace mitral regurgita tion. Tricuspid Valve The tricuspid valve is normal in structure. There is no tricuspid valve stenosis. Mild tricuspid regu rgitation. Pulmonic Valve The pulmonary valve is normal in structure. There is no pulmonic valvular stenosis. Trace pulmonic re gurgitation. Great Vessels The aortic root is normal in size. The ascending aorta is normal in size. Aortic arch is normal in ca liber. IVC is normal in size and collapses >50% with inspiration. Pericardium There is no pericardial effusion. 2D Dimensions IVSD d PLAX 0.85 cm F: 0.6-1.0 LV Vol A2C d MOD 98.2 mL LVPW d PLAX 0.85 cm F: 0.6 - 1.0 LV Vol A4C d MOD 103.2 mL LVID d PLAX 4.69 cm F: 3.8 - 5.2 LA vol/ BSA A2C s A-L 26.8 mL/m2 LVDs 3.10 cm F: 2.2 - 3.5 LA vol/ BSA A4C s A-L 24.8 mL/m2 Ao Root d 2.68 cm F: 2.7 - 3.3 LA Vol/ BSA Biplane s A-L 26.2 mL/m2 RA Area A4C 12.57 cm2 LA Area A4C s MOD 17.40 cm2 RA Vol/ BSA A4C s A-L 16.0 mL/m2 LA Area A2C s MOD 17.77 cm2 Ao Asc Diam d 3.02 cm F: 2.3 - 3.1 LV EF A4C MOD 59.6 % LV EF Teichholz 61.6 % LV EF A2C MOD 59.9 % LVEF (Murillo's) 61.12 % F: 54 - 74 LV EF Biplane MOD 61.1 % LV Volume 79.46 mL F: 46 - 106 SV 63.88 mL LV Volume Index 41.38 mL/m2 F: 29 - 61 SV Index 33.25 mL/m2 LV Vol Biplane MOD 104.5 mL FS 33.05 % M-Mode TAPSE 1.99 cm (M/F) >1.7 LV Diastology MV E' medial 0.071 (>0.07 m/s) E/A Ratio 0.9 LV E/e MED 7.05 (<14) MV E Vmax 0.50 (0.4-1.3 m/s) MV E' lateral 0.100 (>0.1 m/s) MV A Vmax 0.55 (0.4-1.3 m/s) LV E/e LAT 5.00 (<14) MV E/A Ratio 0.91 MV E/E' medial 7.10 MV E/E' lateral 5.02 Aortic Valve LVOT Area 3.14 cm2 AoV Area Vmax 2.77 cm2 LVOT Vmax 1.11 m/s AoV Area/ BSA (Vmax) 1.44 cm2/m2 LVOT Mean Joseph. 0.67 m/s ROZ Mean Joseph. 2.48 cm2 LVOT Peak Grad 4.9 mmHg ROZ Mean Joseph. Index 1.29 cm2/m2 LVOT Mean Grad 2.2 mmHg LVOT VTI 0.227 m LVOT Diam s 1.95 cm AoV Vmax 1.26 m/s Velocity Ratio 0.88 AoV Mean Joseph. 0.85 m/s AoV Peak Grad 6.3 mmHg LVOT SV 71.38 mL AoV Mean Grad 3.3 mmHg AoV VTI 0.259 m AoV Area VTI 2.75 cm2 AoV Area/ BSA (VTI) 1.43 cm/m2 Mitral Valve MV DT 184 (160-240 msec) MV PHT 53 msec MV Area PHT 4.13 cm2 MV VTI 0.271 m MV Area VTI 2.64 (4.0-6.0 cm2) Pulmonary Valve PV Vmax 0.97 (0.5-1.5 m/s) RVOT Peak Gr. 1.98 mmHg PV Peak Grad 3.8 mmHg RVOT Mean Gr. 0.95 mmHg PV Mean Grad 2.1 mmHg RVOT VTI 0.144 m PV VTI 0.218 m RVOT Vmax 0.70 m/s Tricuspid Valve TR Peak Grad 18.9 mmHg TR Vmax 2.18 m/s RA Pressure 3.00 mmHg RVSP (TR) 21.9 mmHg
== END 2021-11-06 02:20 ==
PROVIDERS: PCP Internal Medicine; Visit Provider Nurse Practitioner Adult Health
DX: C50.912 Malignant neoplasm of unspecified site of left female breast (principal)
CPT/HCPCS: 93306

== ENCOUNTER 2021-11-14 00:55 | Outpatient (RCR) | payer BC, SELFPAY ==
[2021-11-14] MEDS: Normal Saline Flush 10 ML SYR IVP (12:08)
[2021-11-14 12:17] LABS: Abs Immature Grans 0.01 10^3/uL (0.0-0.06); Absolute Basophil Count 0.05 10^3/uL (0.0-0.2); Absolute Lymphocyte Count 0.91 10^3/uL (1.2-3.4); Absolute Monocyte Count 0.41 10^3/uL (0.1-0.8); Absolute Neutrophil Count 3.97 10^3/uL (1.2-6.7); Basophils % 0.9; Eosinophils % 1.8; HCT 36.4 % (36.0-46.0); HGB 11.5 g/dL (11.2-15.7); Immature Grans % 0.2; Lymphocytes % 16.7; MCH 28.6 pg (27.0-33.0); MCHC 31.6 % (32.0-36.0); MCV 90.5 fL (80-95); MPV 9.9 fL (8.0-11.0); Monocytes % 7.5; Neutrophils % 72.9; Nucleated RBC 0 %; Platelet Count 220 10^3/uL (130-400); RBC 4.02 10^6/uL (3.93-5.22); RDW 13.6 % (11.7-14.6); RDW-SD 45.3 fL; WBC 5.45 10^3/uL (4.4-10.8)
[2021-11-14 12:53] LABS: ALT 29 U/L (14-59); AST 21 U/L (15-37); Albumin 3.6 g/dL (3.4-5.0); Alkaline Phosphatase 101 U/L (46-116); Anion Gap 9.7 mmol/L (3-11); BUN 24 mg/dL (7-18); Bilirubin, Total 0.3 mg/dL (0.2-1.0); CO2 27.3 mmol/L (21.0-32.0); CREATININE 1.3 mg/dL (0.55-1.02); Calcium 9.4 mg/dL (8.5-10.1); Chloride 104 mmol/L (98-107); Estimated GFR 41.11 (mL/min/1.73m2); Glucose 116 mg/dL (74-106); Potassium 3.9 mmol/L (3.5-5.1); Sodium 141 mmol/L (136-145); Total Protein 7.2 g/dL (6.4-8.2)
[2021-11-15 14:12] LABS: Cancer Ag 15-3 21 U/mL (<30)
== END 2021-11-27 23:59 | disposition home or self-care (01) ==
LOC: INF 00:55
PROVIDERS: PCP Internal Medicine; Visit Provider Internal Medicine
DX: C50.912 Malignant neoplasm of unspecified site of left female breast (principal); Z45.2 Encounter for adjustment and management of vascular access device
CPT/HCPCS: 36591; 80053; 86304; 85025; 86300

== ENCOUNTER 2021-12-05 03:47 | Outpatient (RCR) | payer BC, SELFPAY ==
[2021-12-05] MEDS: Normal Saline Flush 10 ML SYR IVP (12:45)
[2021-12-05 12:58] LABS: Abs Immature Grans 0.01 10^3/uL (0.0-0.06); Absolute Basophil Count 0.05 10^3/uL (0.0-0.2); Absolute Eosinophil Count 0.04 10^3/uL (0.0-0.7); Absolute Monocyte Count 0.46 10^3/uL (0.1-0.8); Absolute Neutrophil Count 3.61 10^3/uL (1.2-6.7); Eosinophils % 0.8; HCT 36.3 % (36.0-46.0); HGB 11.4 g/dL (11.2-15.7); Immature Grans % 0.2; Lymphocytes % 16.1; MCH 28.5 pg (27.0-33.0); MCHC 31.4 % (32.0-36.0); MCV 90.8 fL (80-95); Monocytes % 9.3; Neutrophils % 72.6; Nucleated RBC 0 %; Platelet Count 221 10^3/uL (130-400); RDW 13.5 % (11.7-14.6); RDW-SD 45.5 fL; WBC 4.97 10^3/uL (4.4-10.8)
[2021-12-05 13:14] LABS: ALT 27 U/L (14-59); AST 21 U/L (15-37); Albumin 3.7 g/dL (3.4-5.0); Alkaline Phosphatase 100 U/L (46-116); Anion Gap 7.8 mmol/L (3-11); BUN 17 mg/dL (7-18); Bilirubin, Total 0.6 mg/dL (0.2-1.0); CO2 28.2 mmol/L (21.0-32.0); CREATININE 0.8 mg/dL (0.55-1.02); Calcium 9.5 mg/dL (8.5-10.1); Chloride 105 mmol/L (98-107); Glucose 106 mg/dL (74-106); Sodium 141 mmol/L (136-145); Total Protein 7.3 g/dL (6.4-8.2)
[2021-12-07 14:51] LABS: Cancer Ag 15-3 23 U/mL (<30)
== END 2021-12-28 23:59 | disposition home or self-care (01) ==
LOC: INF 03:47
PROVIDERS: PCP Internal Medicine; Visit Provider Internal Medicine
DX: Z45.2 Encounter for adjustment and management of vascular access device (principal)
CPT/HCPCS: 36591; 80053; 86304; 83735; 85025; 86300

== ENCOUNTER 2022-01-09 02:40 | Outpatient (RCR) | payer BC, SELFPAY ==
[2022-01-09] MEDS: Normal Saline Flush 10 ML SYR IVP (12:59)
[2022-01-09 13:01] LABS: Abs Immature Grans 0.02 10^3/uL (0.0-0.06); Absolute Basophil Count 0.05 10^3/uL (0.0-0.2); Absolute Eosinophil Count 0.05 10^3/uL (0.0-0.7); Absolute Lymphocyte Count 0.93 10^3/uL (1.2-3.4); Absolute Monocyte Count 0.41 10^3/uL (0.1-0.8); Absolute Neutrophil Count 3.92 10^3/uL (1.2-6.7); Basophils % 0.9; Eosinophils % 0.9; HCT 35.3 % (36.0-46.0); HGB 11.4 g/dL (11.2-15.7); Immature Grans % 0.4; Lymphocytes % 17.3; MCH 29.2 pg (27.0-33.0); MCHC 32.3 % (32.0-36.0); MCV 90.5 fL (80-95); MPV 9.9 fL (8.0-11.0); Monocytes % 7.6; Neutrophils % 72.9; Nucleated RBC 0 %; Platelet Count 236 10^3/uL (130-400); RDW 13.8 % (11.7-14.6); RDW-SD 45.4 fL; WBC 5.38 10^3/uL (4.4-10.8)
[2022-01-09 13:14] LABS: ALT 49 U/L (14-59); AST 29 U/L (15-37); Albumin 3.7 g/dL (3.4-5.0); Alkaline Phosphatase 91 U/L (46-116); BUN 20 mg/dL (7-18); Bilirubin, Total 0.6 mg/dL (0.2-1.0); CREATININE 0.8 mg/dL (0.55-1.02); Calcium 8.9 mg/dL (8.5-10.1); Chloride 108 mmol/L (98-107); Glucose 107 mg/dL (74-106); Potassium 3.7 mmol/L (3.5-5.1); Sodium 144 mmol/L (136-145); Total Protein 7.1 g/dL (6.4-8.2)
[2022-01-10 18:01] LABS: Cancer Ag 15-3 20 U/mL (<30)
== END 2022-01-27 23:59 | disposition home or self-care (01) ==
LOC: INF 02:40
PROVIDERS: PCP Internal Medicine; Visit Provider Internal Medicine
DX: Z45.2 Encounter for adjustment and management of vascular access device (principal); C50.912 Malignant neoplasm of unspecified site of left female breast
CPT/HCPCS: 36591; 80053; 86304; 85025; 86300

== ENCOUNTER 2022-02-20 02:24 | Outpatient (RCR) | payer BC, SELFPAY ==
[2022-01-30 12:39] LABS: Abs Immature Grans 0.01 10^3/uL (0.0-0.06); Absolute Basophil Count 0.05 10^3/uL (0.0-0.2); Absolute Eosinophil Count 0.05 10^3/uL (0.0-0.7); Absolute Lymphocyte Count 1.06 10^3/uL (1.2-3.4); Absolute Monocyte Count 0.44 10^3/uL (0.1-0.8); Absolute Neutrophil Count 4.06 10^3/uL (1.2-6.7); Basophils % 0.9; Eosinophils % 0.9; HCT 35.3 % (36.0-46.0); HGB 11.2 g/dL (11.2-15.7); Immature Grans % 0.2; Lymphocytes % 18.7; MCHC 31.7 % (32.0-36.0); MCV 92 fL (80-95); MPV 9.8 fL (8.0-11.0); Monocytes % 7.8; Neutrophils % 71.5; Platelet Count 229 10^3/uL (130-400); RBC 3.86 10^6/uL (3.93-5.22); RDW 13.7 % (11.7-14.6); RDW-SD 45.9 fL; WBC 5.67 10^3/uL (4.4-10.8)
[2022-01-30] MEDS: Normal Saline Flush 10 ML SYR IVP (12:39)
[2022-01-30 12:51] LABS: ALT 37 U/L (14-59); AST 29 U/L (15-37); Albumin 3.5 g/dL (3.4-5.0); Alkaline Phosphatase 95 U/L (46-116); Anion Gap 8.2 mmol/L (3-11); BUN 18 mg/dL (7-18); Bilirubin, Total 0.4 mg/dL (0.2-1.0); CO2 26.8 mmol/L (21.0-32.0); CREATININE 0.8 mg/dL (0.55-1.02); Calcium 8.7 mg/dL (8.5-10.1); Chloride 107 mmol/L (98-107); Glucose 101 mg/dL (74-106); Potassium 3.7 mmol/L (3.5-5.1); Sodium 142 mmol/L (136-145); Total Protein 6.9 g/dL (6.4-8.2)
[2022-02-20] MEDS: Normal Saline Flush 10 ML SYR IVP (12:42)
[2022-02-20 12:51] LABS: Abs Immature Grans 0.01 10^3/uL (0.0-0.06); Absolute Basophil Count 0.05 10^3/uL (0.0-0.2); Absolute Eosinophil Count 0.07 10^3/uL (0.0-0.7); Absolute Lymphocyte Count 1.09 10^3/uL (1.2-3.4); Absolute Monocyte Count 0.42 10^3/uL (0.1-0.8); Absolute Neutrophil Count 3.41 10^3/uL (1.2-6.7); Eosinophils % 1.4; HCT 35.5 % (36.0-46.0); HGB 11.3 g/dL (11.2-15.7); Immature Grans % 0.2; Lymphocytes % 21.6; MCHC 31.8 % (32.0-36.0); MCV 91 fL (80-95); MPV 9.8 fL (8.0-11.0); Monocytes % 8.3; Neutrophils % 67.5; Platelet Count 232 10^3/uL (130-400); RDW 14.1 % (11.7-14.6); WBC 5.05 10^3/uL (4.4-10.8)
[2022-02-20 13:07] LABS: ALT 39 U/L (14-59); AST 31 U/L (15-37); Albumin 3.6 g/dL (3.4-5.0); Alkaline Phosphatase 111 U/L (46-116); Anion Gap 9.5 mmol/L (3-11); BUN 19 mg/dL (7-18); Bilirubin, Total 0.3 mg/dL (0.2-1.0); CO2 27.5 mmol/L (21.0-32.0); CREATININE 0.9 mg/dL (0.55-1.02); Calcium 9.4 mg/dL (8.5-10.1); Chloride 107 mmol/L (98-107); Glucose 119 mg/dL (74-106); Sodium 144 mmol/L (136-145)
== END 2022-02-27 23:59 | disposition home or self-care (01) ==
LOC: INF 02:24
PROVIDERS: PCP Internal Medicine; Visit Provider Internal Medicine
DX: Z45.2 Encounter for adjustment and management of vascular access device (principal); C50.912 Malignant neoplasm of unspecified site of left female breast
CPT/HCPCS: 36591; 80053; 85025

== ENCOUNTER 2022-03-13 02:10 | Outpatient (RCR) | payer BC, SELFPAY ==
[2022-03-13] MEDS: Normal Saline Flush 10 ML SYR IVP (12:36)
[2022-03-13 12:57] LABS: Abs Immature Grans 0.01 10^3/uL (0.0-0.06); Absolute Basophil Count 0.05 10^3/uL (0.0-0.2); Absolute Eosinophil Count 0.09 10^3/uL (0.0-0.7); Absolute Lymphocyte Count 1.02 10^3/uL (1.2-3.4); Absolute Monocyte Count 0.41 10^3/uL (0.1-0.8); Absolute Neutrophil Count 3.17 10^3/uL (1.2-6.7); Basophils % 1.1; Eosinophils % 1.9; HCT 37.1 % (36.0-46.0); HGB 12.1 g/dL (11.2-15.7); Immature Grans % 0.2; Lymphocytes % 21.5; MCH 29.2 pg (27.0-33.0); MCHC 32.6 % (32.0-36.0); MCV 89 fL (80-95); MPV 10.3 fL (8.0-11.0); Monocytes % 8.6; Neutrophils % 66.7; Platelet Count 214 10^3/uL (130-400); RBC 4.15 10^6/uL (3.93-5.22); RDW 14.2 % (11.7-14.6); RDW-SD 46.2 fL; WBC 4.75 10^3/uL (4.4-10.8)
[2022-03-13 13:10] LABS: ALT 55 U/L (14-59); AST 38 U/L (15-37); Albumin 3.5 g/dL (3.4-5.0); Alkaline Phosphatase 129 U/L (46-116); Anion Gap 6.8 mmol/L (3-11); BUN 21 mg/dL (7-18); Bilirubin, Total 0.3 mg/dL (0.2-1.0); CO2 27.2 mmol/L (21.0-32.0); CREATININE 0.7 mg/dL (0.55-1.02); Calcium 9.3 mg/dL (8.5-10.1); Chloride 105 mmol/L (98-107); Glucose 126 mg/dL (74-106); Potassium 4.1 mmol/L (3.5-5.1); Sodium 139 mmol/L (136-145); Total Protein 7.1 g/dL (6.4-8.2)
== END 2022-03-29 23:59 | disposition home or self-care (01) ==
LOC: INF 02:10
PROVIDERS: PCP Internal Medicine; Visit Provider Internal Medicine
DX: Z45.2 Encounter for adjustment and management of vascular access device (principal); C50.912 Malignant neoplasm of unspecified site of left female breast
CPT/HCPCS: 36591; 80053; 85025

== ENCOUNTER 2022-04-03 02:10 | Outpatient (RCR) | payer BC, SELFPAY ==
[2022-04-03] MEDS: Normal Saline Flush 10 ML SYR IVP (09:35)
[2022-04-03 09:47] LABS: Abs Immature Grans 0.01 10^3/uL (0.0-0.06); Absolute Basophil Count 0.04 10^3/uL (0.0-0.2); Absolute Eosinophil Count 0.09 10^3/uL (0.0-0.7); Absolute Monocyte Count 0.41 10^3/uL (0.1-0.8); Absolute Neutrophil Count 2.79 10^3/uL (1.2-6.7); Basophils % 0.9; Eosinophils % 2.1; HCT 37.6 % (36.0-46.0); HGB 12.1 g/dL (11.2-15.7); Immature Grans % 0.2; Lymphocytes % 21.2; MCH 29.4 pg (27.0-33.0); MCHC 32.2 % (32.0-36.0); MCV 91 fL (80-95); MPV 9.8 fL (8.0-11.0); Monocytes % 9.7; Neutrophils % 65.9; Platelet Count 216 10^3/uL (130-400); RBC 4.12 10^6/uL (3.93-5.22); RDW 13.7 % (11.7-14.6); RDW-SD 46.1 fL; WBC 4.24 10^3/uL (4.4-10.8)
[2022-04-03 10:07] LABS: ALT 41 U/L (14-59); AST 30 U/L (15-37); Albumin 3.4 g/dL (3.4-5.0); Alkaline Phosphatase 128 U/L (46-116); Anion Gap 7.5 mmol/L (3-11); BUN 18 mg/dL (7-18); Bilirubin, Total 0.4 mg/dL (0.2-1.0); CO2 27.5 mmol/L (21.0-32.0); CREATININE 0.8 mg/dL (0.55-1.02); Chloride 105 mmol/L (98-107); Glucose 113 mg/dL (74-106); Potassium 3.9 mmol/L (3.5-5.1); Sodium 140 mmol/L (136-145); Total Protein 7.1 g/dL (6.4-8.2)
[2022-04-04 14:59] LABS: Cancer Ag 15-3 23 U/mL (<30)
== END 2022-04-29 23:59 | disposition home or self-care (01) ==
LOC: INF 02:10
PROVIDERS: PCP Internal Medicine; Visit Provider Internal Medicine
DX: C50.912 Malignant neoplasm of unspecified site of left female breast (principal); Z45.2 Encounter for adjustment and management of vascular access device
CPT/HCPCS: 36591; 80053; 86304; 85025; 86300

== ENCOUNTER 2022-07-04 14:54 | Outpatient (CLI) | payer BC, SELFPAY ==
[2022-07-04 14:28] LABS: Abs Immature Grans 0.02 10^3/uL (0.0-0.06); Absolute Basophil Count 0.05 10^3/uL (0.0-0.2); Absolute Eosinophil Count 0.06 10^3/uL (0.0-0.7); Absolute Lymphocyte Count 1.16 10^3/uL (1.2-3.4); Absolute Monocyte Count 0.45 10^3/uL (0.1-0.8); Absolute Neutrophil Count 3.49 10^3/uL (1.2-6.7); Eosinophils % 1.1; HCT 37.3 % (36.0-46.0); HGB 12.2 g/dL (11.2-15.7); Immature Grans % 0.4; Lymphocytes % 22.2; MCH 29.7 pg (27.0-33.0); MCHC 32.7 % (32.0-36.0); MCV 91 fL (80-95); MPV 9.6 fL (8.0-11.0); Monocytes % 8.6; Neutrophils % 66.7; Platelet Count 243 10^3/uL (130-400); RBC 4.11 10^6/uL (3.93-5.22); RDW 13.3 % (11.7-14.6); RDW-SD 44.7 fL; WBC 5.23 10^3/uL (4.4-10.8)
[2022-07-04 15:39] LABS: ALT 32 U/L (14-59); AST 24 U/L (15-37); Alkaline Phosphatase 108 U/L (46-116); BUN 22 mg/dL (7-18); Bilirubin, Total 0.3 mg/dL (0.2-1.0); CREATININE 0.9 mg/dL (0.55-1.02); Calcium 9.8 mg/dL (8.5-10.1); Chloride 103 mmol/L (98-107); Estimated GFR 70.51 (mL/min/1.73m2); Glucose 94 mg/dL (74-106); Potassium 4.3 mmol/L (3.5-5.1); Sodium 139 mmol/L (136-145); Total Protein 7.8 g/dL (6.4-8.2)
[2022-07-05 14:53] LABS: Cancer Ag 15-3 25 U/mL (<30)
== END 2022-07-04 14:55 | disposition home or self-care (01) ==
LOC: LBO 15:11
PROVIDERS: PCP Internal Medicine; Visit Provider Nurse Practitioner Family
DX: C50.412 Malignant neoplasm of upper-outer quadrant of left female breast (principal); Z17.1 Estrogen receptor negative status [ER-]
CPT/HCPCS: 36415; 80053; 86304; 85025; 86300

== ENCOUNTER 2024-01-14 03:52 | Outpatient (CLI) | payer OTHER, SELFPAY ==
[2024-01-14 10:37] LABS: Abs Immature Grans 0.01 10^3/uL (0.0-0.06); Absolute Basophil Count 0.04 10^3/uL (0.0-0.2); Absolute Eosinophil Count 0.07 10^3/uL (0.0-0.7); Absolute Lymphocyte Count 0.89 10^3/uL (1.2-3.4); Absolute Monocyte Count 0.43 10^3/uL (0.1-0.8); Absolute Neutrophil Count 3.12 10^3/uL (1.2-6.7); Basophils % 0.9; Eosinophils % 1.5; HCT 40.4 % (36.0-46.0); HGB 13.2 g/dL (11.2-15.7); Immature Grans % 0.2; Lymphocytes % 19.5; MCH 29.7 pg (27.0-33.0); MCHC 32.7 % (32.0-36.0); MCV 91 fL (80-95); MPV 9.4 fL (8.0-11.0); Monocytes % 9.4; Neutrophils % 68.5; Platelet Count 202 10^3/uL (130-400); RBC 4.45 10^6/uL (3.93-5.22); RDW 13.2 % (11.7-14.6); RDW-SD 43.3 fL; WBC 4.56 10^3/uL (4.4-10.8)
[2024-01-14 11:17] LABS: ALT 29 U/L (14-59); AST 18 U/L (15-37); Albumin 3.8 g/dL (3.4-5.0); Alkaline Phosphatase 110 U/L (46-116); Anion Gap 10.2 mmol/L (3-11); BUN 17 mg/dL (7-18); Bilirubin, Total 0.4 mg/dL (0.2-1.0); CO2 25.8 mmol/L (21.0-32.0); CREATININE 0.9 mg/dL (0.55-1.02); Calcium 9.2 mg/dL (8.5-10.1); Chloride 105 mmol/L (98-107); Estimated GFR 70.07 (mL/min/1.73m2); Glucose 94 mg/dL (74-106); Sodium 141 mmol/L (136-145); Total Protein 7.7 g/dL (6.4-8.2)
== END 2024-01-14 03:53 | disposition home or self-care (01) ==
PROVIDERS: PCP Internal Medicine; Visit Provider Internal Medicine
DX: C50.912 Malignant neoplasm of unspecified site of left female breast (principal)
CPT/HCPCS: 36415; 80053; 85025

== ENCOUNTER 2024-09-08 13:53 | Outpatient (CLI) | payer OTHER, SELFPAY ==
[2024-09-08 13:27] LABS: Abs Immature Grans 0.01 10^3/uL (0.0-0.06); Absolute Basophil Count 0.04 10^3/uL (0.0-0.2); Absolute Eosinophil Count 0.06 10^3/uL (0.0-0.7); Absolute Lymphocyte Count 0.66 10^3/uL (1.2-3.4); Absolute Monocyte Count 0.42 10^3/uL (0.1-0.8); Absolute Neutrophil Count 3.18 10^3/uL (1.2-6.7); Basophils % 0.9 %; Eosinophils % 1.4 %; HCT 40.1 % (36.0-46.0); HGB 13.1 g/dL (11.2-15.7); Immature Grans % 0.2 %; Lymphocytes % 15.1 %; MCH 29.4 pg (27.0-33.0); MCHC 32.7 % (32.0-36.0); MCV 90 fL (80-95); MPV 11.3 fL (8.0-11.0); Monocytes % 9.6 %; Neutrophils % 72.8 %; Platelet Count 172 10^3/uL (130-400); RBC 4.45 10^6/uL (3.93-5.22); RDW-SD 42.4 fL; WBC 4.37 10^3/uL (4.4-10.8)
[2024-09-08 13:35] LABS: ALT 24 U/L (14-59); AST 22 U/L (15-37); Albumin 3.8 g/dL (3.4-5.0); Alkaline Phosphatase 109 U/L (46-116); Anion Gap 7.3 mmol/L (3-11); BUN 22 mg/dL (7-18); Bilirubin, Total 0.39 mg/dL (0.2-1.0); CO2 27.7 mmol/L (21.0-32.0); Calcium 9.7 mg/dL (8.5-10.1); Chloride 104 mmol/L (98-107); Estimated GFR 61.36 (mL/min/1.73m2); Glucose 72 mg/dL (74-106); Potassium 4.3 mmol/L (3.5-5.1); Sodium 139 mmol/L (136-145); Total Protein 7.7 g/dL (6.4-8.2)
== END 2024-09-08 13:54 | disposition home or self-care (01) ==
LOC: LBO 13:54
PROVIDERS: PCP Internal Medicine; Visit Provider Internal Medicine
DX: C50.412 Malignant neoplasm of upper-outer quadrant of left female breast; Z17.1 Estrogen receptor negative status [ER-]
CPT/HCPCS: 36415; 80053; 85025

== ENCOUNTER 2025-03-16 03:36 | Outpatient (CLI) | payer MEDICARE, SELFPAY ==
[2025-03-16 09:52] LABS: Abs Immature Grans 0.02 10^3/uL (0.0-0.06); Absolute Basophil Count 0.06 10^3/uL (0.0-0.2); Absolute Eosinophil Count 0.06 10^3/uL (0.0-0.7); Absolute Lymphocyte Count 0.76 10^3/uL (1.2-3.4); Absolute Monocyte Count 0.44 10^3/uL (0.1-0.8); Absolute Neutrophil Count 3.31 10^3/uL (1.2-6.7); Basophils % 1.3 %; Eosinophils % 1.3 %; HCT 40.2 % (36.0-46.0); HGB 12.7 g/dL (11.2-15.7); Immature Grans % 0.4 %; Lymphocytes % 16.3 %; MCH 28.9 pg (27.0-33.0); MCHC 31.6 % (32.0-36.0); MCV 92 fL (80-95); MPV 9.9 fL (8.0-11.0); Monocytes % 9.5 %; Neutrophils % 71.2 %; Platelet Count 233 10^3/uL (130-400); RBC 4.39 10^6/uL (3.93-5.22); RDW-SD 43.4 fL; WBC 4.65 10^3/uL (4.4-10.8)
[2025-03-16 10:08] LABS: ALT 30 U/L (14-59); AST 26 U/L (15-37); Albumin 3.7 g/dL (3.4-5.0); Alkaline Phosphatase 103 U/L (46-116); Anion Gap 8.1 mmol/L (3-11); BUN 22 mg/dL (7-18); Bilirubin, Total 0.4 mg/dL (0.2-1.0); CO2 27.9 mmol/L (21.0-32.0); CREATININE 0.8 mg/dL (0.55-1.02); Calcium 9.4 mg/dL (8.5-10.1); Chloride 104 mmol/L (98-107); Estimated GFR 79.71 (mL/min/1.73m2); Glucose 95 mg/dL (74-106); Potassium 4.2 mmol/L (3.5-5.1); Sodium 140 mmol/L (136-145); Total Protein 7.6 g/dL (6.4-8.2)
== END 2025-03-16 03:37 | disposition home or self-care (01) ==
LOC: LBO 03:36
PROVIDERS: PCP Family Medicine; Visit Provider Internal Medicine
DX: C50.912 Malignant neoplasm of unspecified site of left female breast (principal); Z17.31 Human epidermal growth factor receptor 2 positive status; C50.412 Malignant neoplasm of upper-outer quadrant of left female breast; Z17.1 Estrogen receptor negative status [ER-]
CPT/HCPCS: 36415; 80053; 85025

== ENCOUNTER 2025-09-14 01:31 | Outpatient (CLI) | payer MEDICARE, SELFPAY ==
[2025-09-14 12:47] LABS: Abs Immature Grans 0.01 10^3/uL (0.0-0.06); HCT 38.0 % (36.0-46.0); HGB 12.4 g/dL (11.2-15.7); Immature Grans % 0.2 %; MCH 29.3 pg (27.0-33.0); MCHC 32.6 % (32.0-36.0); MCV 90 fL (80-95); MPV 9.8 fL (8.0-11.0); Platelet Count 217 10^3/uL (130-400); RBC 4.23 10^6/uL (3.93-5.22); RDW 13.2 % (11.7-14.6); RDW-SD 43.0 fL; WBC 5.01 10^3/uL (4.4-10.8)
[2025-09-14 13:03] LABS: ALT 23 U/L (10-49); AST 24 U/L (<34); Albumin 4.5 g/dL (3.2-5.0); Alkaline Phosphatase 90 U/L (46-116); Anion Gap 8.4 mmol/L (3-11); BUN 21 mg/dL (9-23); Bilirubin, Total 0.5 mg/dL (0.2-1.2); CO2 30.6 mmol/L (20.0-31.0); Calcium 10.2 mg/dL (8.3-10.6); Chloride 106 mmol/L (98-107); Glucose 86 mg/dL (74-106); Potassium 4.4 mmol/L (3.5-5.1); Sodium 145 mmol/L (136-145); Total Protein 7.3 g/dL (5.7-8.2)
== END 2025-09-14 01:32 | disposition home or self-care (01) ==
LOC: LBO 01:31
PROVIDERS: PCP Family Medicine; Visit Provider Nurse Practitioner
DX: C50.412 Malignant neoplasm of upper-outer quadrant of left female breast (principal); Z17.1 Estrogen receptor negative status [ER-]; Z17.31 Human epidermal growth factor receptor 2 positive status
CPT/HCPCS: 36415; 80053; 85025